=== PATIENT | female | born 2000 | race Caucasian/White ===

== ENCOUNTER → 2022-10-31 | Outpatient (CLI) | payer BC ==
[2022-10-31 08:53] LABS: THYROID STIMULATING HORMONE 2.156 uIU/ML (0.55-4.78)
[2022-10-31 08:54] LABS: FREE T4 1.24 NG/DL (0.89-1.76)
== END ==
LOC: M LAB 07:34
DX: E04.1 Nontoxic single thyroid nodule (principal)